=== PATIENT | male | born 1995 | race Caucasian/White ===

== ENCOUNTER 2016-11-13 18:00 | Emergency (ER) | payer BC ==
[~2016-11-13] VITALS: Ht 185.4 cm; Wt 84.1 kg
[2016-11-13 18:03] VITALS: BP 154/97; PULSE 92; TEMP 98.3
== END 2016-11-13 18:39 | disposition home or self-care (01) ==
LOC: COL.ER 18:00
DX: R09.89 Other specified symptoms and signs involving the circulatory and respiratory systems (principal)

== ENCOUNTER 2017-08-24 16:54 | Emergency (ER) | payer BC ==
[~2017-08-24] VITALS: Ht 185.4 cm; Wt 84.1 kg
[2017-08-24 17:07] VITALS: BP 136/91; TEMP 96.4
[2017-08-24 17:57] LABS: BASO # 0.1 (0.0-0.2); BASO % 0.5 % (0.0-2.0); EOS # 0.3 (0.0-0.7); EOS % 1.6 % (0-4.0); GRAN # 14.4 (1.4-6.5); GRAN % 85.6 % (42.2-75.2); HEMATOCRIT 47.3 % (36.0-47.0); HEMOGLOBIN 16.9 g/dl (12.5-16.1); LYMPH % 6.1 % (20.0-51.0); MEAN CELL VOLUME 86 fl (80.0-95.0); MEAN CORPUSCULAR HEMOGLOBIN 31 pg (26.0-32.0); MEAN CORPUSCULAR HGB CONC 36 g/dl (33.0-37.0); MEAN PLATELET VOLUME 8.8 fl (7.4-10.4); MONO % 5.8 % (1.7-9.3); PLATELET COUNT 395 K/mm3 (130-400); WHITE BLOOD COUNT 16.8 K/mm3 (4.8-10.8)
[2017-08-24 18:15] LABS: ADJUSTED CALCIUM 9.3 mg/dL (8.4-10.2); ALANINE AMINOTRANSFERASE 26 U/L (21-72); ALBUMIN 5.6 gm/dL (3.5-5.0); ALKALINE PHOSPHATASE 122 U/L (50-136); ANION GAP 16 mmol/L (7-16); BILIRUBIN,TOTAL 2.7 mg/dL (0.0-1.0); BLOOD UREA NITROGEN 15 mg/dL (9-20); C-REACTIVE PROTEIN < 0.5 mg/dL (0.0-0.9); CALCIUM 10.6 mg/dL (8.4-10.2); CARBON DIOXIDE 19 mmol/L (22-30); CHLORIDE 103 mmol/L (98-107); CREATININE, serum 1.01 mg/dL (0.66-1.25); GLUCOSE 135 mg/dL (74-106); LIPASE 86 U/L (23-300); POTASSIUM 3.4 mmol/L (3.4-5.0); SODIUM 138 mmol/L (137-145); TOTAL PROTEIN 9.3 gm/dL (6.4-8.2)
[2017-08-24 19:54] VITALS: PULSE 95
== END 2017-08-24 19:57 | disposition home or self-care (01) ==
LOC: COL.ER 16:54
PROVIDERS: Nurse Practitioner
DX: K52.9 Noninfective gastroenteritis and colitis, unspecified (principal); J45.909 Unspecified asthma, uncomplicated; F12.90 Cannabis use, unspecified, uncomplicated
CPT/HCPCS: J2405; J7030

== ENCOUNTER → 2018-07-08 | Outpatient (CLI) | payer BC | LOC: COL.RAD 09:53 | DX: M51.17 Intervertebral disc disorders with radiculopathy, lumbosacral region (principal); M48.061 Spinal stenosis, lumbar region without neurogenic claudication ==